=== PATIENT | female | born 1985 | race Caucasian/White ===

== ENCOUNTER 2019-03-21 12:34 | Emergency (ER) | payer BC ==
[2019-03-21] MEDS ORDERED: NORMAL SALINE 1000 ML 1,000 ML IV ONE (13:11)
[2019-03-21] MEDS ORDERED: KETOROLAC TROMETHAMINE INJ/PF 30 MG/1 ML SDV IV ONE (13:11)
[2019-03-21] MEDS ORDERED: MORPHINE SULFATE 10 MG/ML INJ IV ONE (13:11)
--- NOTE | 2019-03-21 13:12 | ER Document Report ---
ED Medical Screen (RME) - General Chief Complaint: Ankle Swelling Stated Complaint: ANKLE PAIN Time Seen by Provider: 03/21/19 13:05 Information source: Patient Notes: Patient presents with extensive sunburn to anterior aspect of body. Patient with bilateral lower extremity pain and swelling. No obvious blistering. I have greeted and performed a rapid initial assessment of this patient. A comprehensive ED assessment and evaluation of the patient, analysis of test results and completion of the medical decision making process will be conducted by additional ED providers. TRAVEL OUTSIDE OF THE [place] IN LAST 30 DAYS: No - Related Data Allergies/Adverse Reactions: No Known Allergies Allergy (Verified 03/21/19 12:49) Past Medical History - Social History Frequency of alcohol use: None Drug Abuse: None - Past Medical History Cardiac Medical History: Reports: Hx Hypercholesterolemia Renal/ Medical History: Denies: Hx Peritoneal Dialysis Past Surgical History: Reports: Hx Hysterectomy Physical Exam - Vital signs Vitals: Temp Pulse Resp BP Pulse Ox 98.1 F 107 H 18 140/87 H 99 03/21/19 12:55 03/21/19 12:55 03/21/19 12:55 03/21/19 12:55 03/21/19 12:55 - Skin Skin Color: Erythema - Involving face chest upper and lower extremities Course - Vital Signs Vital signs: Temp Pulse Resp BP Pulse Ox 98.1 F 107 H 18 140/87 H 99 03/21/19 12:55 03/21/19 12:55 03/21/19 12:55 03/21/19 12:55 03/21/19 12:55
[2019-03-21 14:06] LABS: ABSOLUTE BASOPHILS # (AUTO) 0.1 10^3/uL (0.0-0.2); ABSOLUTE EOSINOPHILS # (AUTO) 0.1 10^3/uL (0.0-0.6); ABSOLUTE LYMPHOCYTES (AUTO) 1.8 10^3/uL (0.5-4.7); ABSOLUTE MONOCYTES (AUTO) 1.1 10^3/uL (0.1-1.4); ABSOLUTE NEUT (AUTO) 7.8 10^3/uL (1.7-8.2); BASOPHILS % (AUTO) 0.5 % (0-2); HEMOGLOBIN 12.2 g/dL (12.0-15.5); LYMPHOCYTES % (AUTO) 16.4 % (13-45); MEAN CORPUSCULAR HEMOGLOBIN 32.4 pg (27.0-33.4); MEAN CORPUSCULAR HGB CONC 34.7 g/dL (32.0-36.0); MEAN CORPUSCULAR VOLUME 93 fl (80-97); MONOCYTES % (AUTO) 10.1 % (3-13); PLATELET COUNT 268 10^3/uL (150-450); RED BLOOD COUNT 3.75 10^6/uL (3.72-5.28); RED CELL DISTRIBUTION WIDTH 14.4 % (11.5-14.0); TOTAL CELLS COUNTED % (AUTO) 100 %; WHITE BLOOD COUNT 10.7 10^3/uL (4.0-10.5)
--- NOTE | 2019-03-21 15:00 | ER Document Report ---
HPI - HPI Patient complains to provider of: sunburn Time Seen by Provider: 03/21/19 13:05 Pain Level: 5 Context: Patient is a 33-year-old female still in her breathing suit and the son called brought presents to the emergency department for generalized sunburn to bilateral lower extremities. Patient states she has been outside in the sun all morning. States she was also in the sun yesterday. Patient states bilateral lower extremities "got really swollen" and were very painful which is why she presents to the emergency room. Patient is denying any injuries or other complaints. Denies fever, headache, nausea, vomiting. Past medical history: None Medications: None Allergies: None Patient is up-to-date on immunizations - REPRODUCTIVE Reproductive: DENIES: : - DERM Skin Color: Normal, [place] Past Medical History - General Information source: Patient - Social History Smoking Status: Current Every Day Smoker Frequency of alcohol use: None Drug Abuse: None Family History: Reviewed & Not Pertinent Patient has suicidal ideation: No Patient has homicidal ideation: No - Past Medical History Cardiac Medical History: Reports: Hx Hypercholesterolemia Renal/ Medical History: Denies: Hx Peritoneal Dialysis Past Surgical History: Reports: Hx Hysterectomy Vertical Provider Document - CONSTITUTIONAL Agree With Documented VS: Yes Notes: GENERAL: Alert, interacts well. No acute distress. HEAD: Normocephalic, atraumatic. EYES: Pupils equal, round, and reactive to light. Extraocular movements intact. ENT: Oral mucosa moist, tongue midline. NECK: Full range of motion. Supple. Trachea midline. LUNGS: Clear to auscultation bilaterally, no wheezes, rales, or rhonchi. No respiratory distress. HEART: Regular rate and rhythm. No murmur ABDOMEN: Soft, non-tender. Non-distended. Bowel sounds present in all 4 quadrants. EXTREMITIES: Moves all 4 extremities spontaneously. No edema, normal radial and dorsalis pedis pulses bilaterally. No cyanosis. BACK: no cervical, thoracic, lumbar midline tenderness. No saddle anesthesia, normal distal neurovascular exam. NEUROLOGICAL: Alert and oriented x3. Normal speech. cranial nerves II through XII grossly intact PSYCH: Normal affect, normal mood. SKIN: Warm, dry, generalized superficial redness noted anterior aspect of bilateral lower extremities with minor edema, nonpitting. No blistering noted. - INFECTION CONTROL TRAVEL OUTSIDE OF THE [place] IN LAST 30 DAYS: No Course - Re-evaluation Re-evalutation: 03/21/19 15:00 Patient has been treated with fluid resuscitation, analgesics by RME provider. I discussed with patient use of [id number] 800 mg Motrin's every 6 hours. I also discussed use of aloe vera gel staying well-hydrated. Patient stable for discharge. - Vital Signs Vital signs: Temp Pulse Resp BP Pulse Ox 98.1 F 107 H 18 140/87 H 99 03/21/19 12:55 03/21/19 12:55 03/21/19 12:55 03/21/19 12:55 03/21/19 12:55 - Laboratory Result Diagrams: 03/21/19 13:44 03/21/19 15:41 Laboratory results interpreted by me: 03/21/19 13:44 WBC 10.7 H Hct 35.0 L RDW 14.4 H Discharge - Discharge Clinical Impression: Sunburn Condition: Stable Disposition: HOME, SELF-CARE Instructions: Sunburn ([facility]) Additional Instructions: As we discussed you have been seen and treated in the emergency room for a sunburn. The redness and swelling is normal after a sunburn. Patient is sure you are staying well-hydrated, taking meko-kxh-ovectva 800 mg Motrin's every 6 hours and using [id number] aloe vera gel. Please note that if you see any blistering you should clean them with generalized soap and water. You can also apply an [id number] Antibiotic ointment to prevent infection. Follow-up with your primary care provider in the next 24 to 48 hours. Please return to the emergency room for any concerns. Prescriptions: Ibuprofen [Motrin 600 Mg Tablet] 800 mg PO Q6 PRN #20 tablet PRN Reason: Forms: Return to Work
[2019-03-21 16:11] LABS: ALANINE AMINOTRANSFERASE 12 U/L (9-52); ALBUMIN 3.9 g/dL (3.5-5.0); ALKALINE PHOSPHATASE 48 U/L (38-126); ANION GAP 9 (5-19); ASPARTATE AMINO TRANSFERASE 15 U/L (14-36); BILIRUBIN,DIRECT 0.3 mg/dL (0.0-0.4); BILIRUBIN,TOTAL 0.4 mg/dL (0.2-1.3); BLOOD UREA NITROGEN 20 mg/dL (7-20); CALCIUM 9.1 mg/dL (8.4-10.2); CARBON DIOXIDE 26 mmol/L (22-30); CHLORIDE 104 mmol/L (98-107); GLUCOSE 75 mg/dL (75-110); POTASSIUM 3.6 mmol/L (3.6-5.0); SODIUM 138.7 mmol/L (137-145); TOTAL PROTEIN 6.7 g/dL (6.3-8.2)
[2019-03-21 16:53] VITALS: BP 119/73
== END 2019-03-21 16:53 | disposition home or self-care (01) ==
LOC: ER 12:34
DX: L55.0 Sunburn of first degree (principal); F17.200 Nicotine dependence, unspecified, uncomplicated
CPT/HCPCS: 99283; 96361; 96374; 96375; 36415; 85025; 80053; J1885; J2270; J7030